=== PATIENT | male | born 1960 | race Caucasian/White ===

== ENCOUNTER 2019-04-13 12:21 | Emergency (ER) | payer MEDICAID ==
[~2019-04-13] VITALS: Ht 152.4 cm; Wt 80.3 kg
[2019-04-13] MEDS ORDERED: PANTOPRAZOLE 40 MG INJ VIAL IVP ONE (13:20)
[2019-04-13] MEDS ORDERED: NACL 0.9% 500 ML IV SCH (13:20)
--- NOTE | 2019-04-13 13:23 | NUR ---
C/O BLOOD IN URINE AND STOOL FOR APPROX 3 MONTHS. +DIARRHEA. DENIES N/V OR FEVER;AFEBRILE AT THIS TIME. LBM 04/13/19. PT REPORTS FREQUENT ETOH CONSUMPTION. HX: NONE RX: NONE
[2019-04-13 13:57] LABS: APPEARANCE,URINE CLEAR (CLEAR); BILIRUBIN,URINE NEGATIVE (NEGATIVE); BLOOD, URINE 2+ (NEGATIVE); COLOR,URINE YELLOW (YELLOW); LEUKOCYTE ESTERASE ,URINE NEGATIVE (NEGATIVE); NITRITE, URINE NEGATIVE (NEGATIVE); UGLUCOSE NEGATIVE (NEGATIVE)
[2019-04-13 13:58] LABS: BASOPHILS # (AUTO) 0.1 K/uL (0.00-0.22); BASOPHILS % (AUTO) 0.8 % (0.0-2.0); EOSINOPHILS % (AUTO) 0.6 % (0.0-4.0); HEMATOCRIT 37.6 % (36-52); LYMPHOCYTES # (AUTO) 2.1 K/uL (2.0-11.5); LYMPHOCYTES % (AUTO) 27.6 % (20.5-51.1); MEAN CORPUSCULAR HEMOGLOBIN 36 pg (27-31); MEAN CORPUSCULAR HGB CONC 35 g/dL (33-37); MEAN CORPUSCULAR VOLUME 102.6 fL (80-94); MONOCYTES # (AUTO) 0.5 K/uL (0.8-1.0); MONOCYTES % (AUTO) 7.3 % (1.7-9.3); NEUTROPHILS # (AUTO) 4.8 K/uL (1.8-7.7); NEUTROPHILS % (AUTO) 63.7 % (42.2-75.2); PLATELET COUNT (AUTO) 149 K/uL (140-450); RED BLOOD CELL COUNT(AUTO) 3.67 MIL/uL (4.20-6.10); RED CELL DISTRIBUTION WIDTH 12.9 % (11.6-13.7); WHITE BLOOD COUNT (AUTO) 7.5 K/uL (4.8-10.8)
[2019-04-13 14:08] LABS: ANION GAP 16.5 (8-16); CARBON DIOXIDE 28.6 mmol/L (21-32); CREATININE 0.7 mg/dL (0.7-1.3); POTASSIUM 3.1 mmol/L (3.5-5.1)
[2019-04-13 14:12] LABS: BARBITURATE, URINE NEG. ng/ml (NEG <=200); BENZODIAZEPINE, URINE NEG. ng/mL (NEG <=200); CANNABINOID, URINE NEG. ng/mL (NEG <=50); COCAINE, URINE NEG. ng/mL (NEG <=300); OPIATE, URINE NEG. ng/mL (NEG <=2000); PHENCYCLIDINE SCREEN,URINE NEG. ng/mL (NEG <=25)
[2019-04-13 14:13] LABS: PROTHROMBIN TIME 11.8 secs (10.8-13.4)
[2019-04-13 14:15] LABS: ALBUMIN 3.3 g/dL (3.4-5.0); MAGNESIUM 1.7 mg/dL (1.8-2.4); TOTAL BILIRUBIN 1.7 mg/dL (0.0-1.0)
[2019-04-13 14:16] LABS: WBC,URINE 0-5 /HPF (0-5)
[2019-04-13] MEDS ORDERED: POTASSIUM CHLORIDE 10 MEQ TABER PO ONE (15:30)
[2019-04-13] MEDS ORDERED: KCL 20 MEQ/WATER INJ PREMIX 100 ML IV ONE (15:30)
--- NOTE | 2019-04-13 16:16 | NUR ---
Patient is resting comfortably in bed. Respirations even and unlabored.
[2019-04-13 17:59] VITALS: BP 155/82
--- NOTE | 2019-04-13 17:59 | NUR ---
Patient discharged with v/s stable. Written and verbal after care instructions given and explained. Patient alert, oriented and verbalized understanding of instructions. Ambulatory with steady gait. All questions addressed prior to discharge. ID band removed. Patient advised to follow up with PMD. Rx of protonix, pepcid and atarax given. Patient educated on indication of medication including possible reaction and side effects. Opportunity to ask questions provided and answered.
== END 2019-04-13 17:59 | disposition home or self-care (01) ==
LOC: MED 12:21
DX: K62.5 Hemorrhage of anus and rectum (principal); F10.20 Alcohol dependence, uncomplicated; E87.6 Hypokalemia; Y90.6 Blood alcohol level of 120-199 mg/100 ml
CPT/HCPCS: 36415; 71045; 74176; 80053; 80305; 81001; 82150; 83690; 83735; 85025; 85610; 85730; 86886; 86900; 86901; 93005; 96365; 96375; 99284; C9113; G0482; J3480; J7030